=== PATIENT | male | born 1970 | race Caucasian/White ===

== ENCOUNTER 2024-08-27 17:02 | Inpatient (IN) | payer OTHER ==
[~2024-08-27] VITALS: Ht 175.3 cm; Wt 102.0 kg
[2024-08-27 17:42] LABS: PLATELET COUNT (AUTO) 208 K/uL (150-450); RED BLOOD CELL COUNT(AUTO) 4.60 MIL/uL (4.50-5.90); RED CELL DISTRIBUTION WIDTH 12.8 % (11.5-14.5); WHITE BLOOD COUNT (AUTO) 7.7 K/uL (4.5-11.0)
[2024-08-27 17:55] LABS: CALCIUM, TOTAL 8.9 mg/dL (8.8-10.5); CREATININE 1.11 mg/dL (0.60-1.30); GLOMERULAR FILTR. RATE CALC > 60 mL/min (>60); GLUCOSE,RANDOM 95 mg/dL (70-110); SODIUM SERUM 138 mmol/L (136-145); UREA NITROGEN, BLOOD 25 mg/dL (7-18)
[2024-08-27 18:06] LABS: LACTIC ACID 0.8 mmol/L (0.4-2.0)
[2024-08-27] MEDS: CefTRIAXone SODIUM 2 GM in DEXTROSE 5%-WATER 50 ML IV ONE (18:15)
[2024-08-27] MEDS: LIDOCAINE 1% 10 ML VIAL PERC ONE (18:31)
[2024-08-27] MEDS: LIDOCAINE/PRILOCAINE 2.5-2.5% 30 GM CREAM TP ONE (18:34)
[2024-08-27] MEDS: VANCOMYCIN 1.25 GM/WATER(PEG) 250 ML IV ONE (18:34)
[2024-08-27] MEDS ORDERED: ONDANSETRON HCL 4 MG/2 ML VIAL IVP PRN (19:00)
[2024-08-27] MEDS: DOCUSATE SODIUM 100 MG CAPSULE PO SCH (20:07)
[2024-08-27 22:32] VITALS: BP 132/82; PULSE 75; RESP 18; TEMP 98.1; O2SAT 100
[2024-08-27] MEDS: MELATONIN 3 MG TABLET PO ONE (23:33)
[2024-08-27] MEDS: ACETAMINOPHEN 325 MG TABLET PO PRN (23:33)
[2024-08-28 04:50] VITALS: BP 114/71; PULSE 74; RESP 18; TEMP 98.2; O2SAT 100
[2024-08-28 07:08] LABS: PLATELET COUNT (AUTO) 199 K/uL (150-450); RED BLOOD CELL COUNT(AUTO) 4.54 MIL/uL (4.50-5.90); RED CELL DISTRIBUTION WIDTH 13.0 % (11.5-14.5); WHITE BLOOD COUNT (AUTO) 7.6 K/uL (4.5-11.0)
[2024-08-28 07:11] LABS: CALCIUM, TOTAL 8.7 mg/dL (8.8-10.5); CREATININE 0.85 mg/dL (0.60-1.30); GLOMERULAR FILTR. RATE CALC > 60 mL/min (>60); GLUCOSE,RANDOM 95 mg/dL (70-110); SODIUM SERUM 137 mmol/L (136-145); UREA NITROGEN, BLOOD 18 mg/dL (7-18)
[2024-08-28] MEDS: MORPHINE SULFATE 2 MG/ML SYRINGE IVP PRN (07:42)
[2024-08-28 08:15] VITALS: BP 115/75; PULSE 73; RESP 18; TEMP 97.8; O2SAT 98
[2024-08-28] MEDS ORDERED: LIDOCAINE 2%/EPI 1:200,000/PF 10 ML VIAL IM ONE (15:45)
[2024-08-28] MEDS: LIDOCAINE/PF 2% 5 ML VIAL IM ONE (16:51)
[2024-08-28 20:21] VITALS: BP 124/67; PULSE 78; RESP 18; TEMP 99.5; O2SAT 96
[2024-08-28] MEDS: MELATONIN 3 MG TABLET PO PRN (20:59)
[2024-08-29] MEDS: HEPARIN SODIUM,PORCINE 5,000 UNITS/ML VIAL SQ SCH
[2024-08-29 04:31] VITALS: BP 112/64; PULSE 70; RESP 18; TEMP 98.8; O2SAT 99
[2024-08-29 09:40] VITALS: BP 116/66; PULSE 73; RESP 19; TEMP 98.9; O2SAT 100
[2024-08-29] MEDS: VANCOMYCIN 1GM/WATER(PEG/NADA) 200 ML IV SCH (16:10)
[2024-08-29] MEDS ORDERED: SODIUM CHLORIDE 0.9% 1,000 ML ONE (16:15)
[2024-08-29 19:30] VITALS: BP 126/69; PULSE 64; RESP 18; TEMP 98.2; O2SAT 99
[2024-08-30 04:42] VITALS: BP 128/78; PULSE 65; RESP 18; TEMP 98.1; O2SAT 98
[2024-08-30 07:38] LABS: CALCIUM, TOTAL 8.9 mg/dL (8.8-10.5); CREATININE 0.80 mg/dL (0.60-1.30); GLOMERULAR FILTR. RATE CALC > 60 mL/min (>60); GLUCOSE,RANDOM 104 mg/dL (70-110); SODIUM SERUM 141 mmol/L (136-145); UREA NITROGEN, BLOOD 17 mg/dL (7-18)
[2024-08-30 09:01] VITALS: BP 115/83; PULSE 60; RESP 18; TEMP 97.7; O2SAT 99
[2024-08-30 19:46] VITALS: BP 135/74; PULSE 75; RESP 18; TEMP 98.6; O2SAT 100
[2024-08-31 04:51] VITALS: BP 120/66; PULSE 59; RESP 18; TEMP 97.9; O2SAT 100
[2024-08-31 06:48] LABS: CALCIUM, TOTAL 9.0 mg/dL (8.8-10.5); CREATININE 0.86 mg/dL (0.60-1.30); GLOMERULAR FILTR. RATE CALC > 60 mL/min (>60); GLUCOSE,RANDOM 103 mg/dL (70-110); SODIUM SERUM 140 mmol/L (136-145); UREA NITROGEN, BLOOD 19 mg/dL (7-18)
[2024-08-31 08:23] VITALS: BP 124/76; PULSE 60; RESP 17; TEMP 97.8; O2SAT 100
[2024-08-31 08:57] VITALS: BP 127/84; PULSE 64; RESP 20; TEMP 97.7; O2SAT 98
[2024-08-31 19:47] VITALS: BP 142/97; PULSE 72; RESP 16; TEMP 98.1; O2SAT 99
[2024-09-01 03:03] VITALS: BP 121/86; PULSE 63; RESP 18; TEMP 98.4; O2SAT 100
[2024-09-01 07:06] LABS: CALCIUM, TOTAL 9.2 mg/dL (8.8-10.5); CREATININE 0.94 mg/dL (0.60-1.30); GLOMERULAR FILTR. RATE CALC > 60 mL/min (>60); GLUCOSE,RANDOM 111 mg/dL (70-110); SODIUM SERUM 137 mmol/L (136-145); UREA NITROGEN, BLOOD 21 mg/dL (7-18)
[2024-09-01 08:00] VITALS: BP 123/81; PULSE 61; RESP 18; TEMP 97.5; O2SAT 100
[2024-09-01 15:54] VITALS: BP 122/81; PULSE 71; RESP 18; TEMP 98.2; O2SAT 100
== END 2024-09-01 16:45 | DRG 501 ==
LOC: EMS 17:02 → EDH 18:51 → 6S 21:59
PROVIDERS: ADMIT Internal Medicine; ATTEND Internal Medicine
PROC: 0R9L3ZZ Drainage of Right Elbow Joint, Percutaneous Approach (ICD-10-PCS; principal; 2024-08-27)
PROC: 0M930ZZ Drainage of Right Elbow Bursa and Ligament, Open Approach (ICD-10-PCS; 2024-08-28)
DX: M71.121 Other infective bursitis, right elbow (principal); C85.9A Non-Hodgkin lymphoma, unspecified, in remission; S42.447 Incarcerated fracture (avulsion) of medial epicondyle of right humerus; L03.113 Cellulitis of right upper limb; R79.89 Other specified abnormal findings of blood chemistry; S50.311A Abrasion of right elbow, initial encounter; B95.61 Methicillin susceptible Staphylococcus aureus infection as the cause of diseases classified elsewhere; W18.39XA Other fall on same level, initial encounter; Y92.148 Other place in prison as the place of occurrence of the external cause; Y93.89 Activity, other specified; Y99.8 Other external cause status; Z91.81 History of falling
CPT/HCPCS: 10160; 80048; 80202; 83605; 83735; 85025; 85651; 86140; 87040; 87070; 87186; 87205; 96365; 96368; 99285; J0696; J1644; J2270; J3490; J7030; J7060

== ENCOUNTER 2024-09-03 16:22 | Inpatient (IN) | payer OTHER ==
[~2024-09-03] VITALS: Ht 175.3 cm; Wt 95.5 kg
[2024-09-03 17:22] LABS: PLATELET COUNT (AUTO) 286 K/uL (150-450); RED BLOOD CELL COUNT(AUTO) 4.57 MIL/uL (4.50-5.90); RED CELL DISTRIBUTION WIDTH 12.7 % (11.5-14.5); WHITE BLOOD COUNT (AUTO) 6.4 K/uL (4.5-11.0)
[2024-09-03 17:28] LABS: CALCIUM, TOTAL 9.1 mg/dL (8.8-10.5); CREATININE 0.98 mg/dL (0.60-1.30); GLOMERULAR FILTR. RATE CALC > 60 mL/min (>60); GLUCOSE,RANDOM 114 mg/dL (70-110); SODIUM SERUM 140 mmol/L (136-145); UREA NITROGEN, BLOOD 27 mg/dL (7-18)
[2024-09-03 17:32] LABS: ASPARTATE AMINOTRANSFERASE 44 U/L (15-37); C-REACTIVE PROTEIN QUANT 1.44 mg/dL (0.00-0.30); TOTAL PROTEIN, SERUM 8.0 g/dL (6.4-8.2)
[2024-09-03 17:49] LABS: ERYTHROCYTE SEDIMENTATION RATE 34 MM/HR (0-20)
[2024-09-03] MEDS ORDERED: BISACODYL 10 MG RECTAL RECTAL SUPPOSITORY PR PRN (18:30)
[2024-09-03] MEDS ORDERED: ZOLPIDEM TARTRATE 5 MG TABLET PO PRN (18:30)
[2024-09-03] MEDS ORDERED: ALBUTEROL SULFATE 2.5 MG/0.5 ML NEB SOLUTION NEB PRN (18:30)
[2024-09-03] MEDS ORDERED: MAGNESIUM HYDROXIDE SUSPENSION 30 ML UDCUP PO PRN (18:30)
[2024-09-03] MEDS ORDERED: ONDANSETRON HCL 4 MG/2 ML VIAL IVP PRN (18:30)
[2024-09-03] MEDS ORDERED: IPRATROPIUM BROMIDE 0.5 MG/2.5 ML NEB SOLUTION NEB PRN (18:30)
[2024-09-03] MEDS ORDERED: HYDROCODONE/ACETAMINOPHEN 5-325 MG TABLET PO PRN (18:30)
[2024-09-03] MEDS ORDERED: ACETAMINOPHEN 325 MG TABLET PO PRN (18:30)
[2024-09-03] MEDS ORDERED: MELATONIN 5 MG TABLET PO PRN (18:45)
[2024-09-03 22:16] VITALS: BP_SYST 116; BP_SYST 128; BP_DIAS 66; BP_DIAS 77; PULSE 64; PULSE 85; RESP 18; RESP 19; TEMP 97.7; TEMP 98.6; O2SAT 94; O2SAT 99
[2024-09-03] MEDS: MORPHINE SULFATE 2 MG/ML SYRINGE IVP PRN (22:19)
[2024-09-03] MEDS: HEPARIN SODIUM,PORCINE 5,000 UNITS/ML VIAL SQ SCH (22:23)
[2024-09-04 04:06] VITALS: BP 107/67; PULSE 59; RESP 18; TEMP 97.7; O2SAT 99
[2024-09-04 08:02] VITALS: BP 112/78; PULSE 63; RESP 18; TEMP 97.5; O2SAT 100
[2024-09-04] MEDS: PANTOPRAZOLE SODIUM 40 MG DR TABLET PO SCH (08:13)
== END 2024-09-04 13:25 | DRG 558 ==
LOC: EMS 16:22 → EDH 18:29 → 6S 21:55
PROVIDERS: ADMIT Hospitalist; ATTEND Hospitalist
DX: M71.121 Other infective bursitis, right elbow (principal); S42.431A Displaced fracture (avulsion) of lateral epicondyle of right humerus, initial encounter for closed fracture; C85.9A Non-Hodgkin lymphoma, unspecified, in remission; B96.89 Other specified bacterial agents as the cause of diseases classified elsewhere; B95.7 Other staphylococcus as the cause of diseases classified elsewhere; Z91.199 Patient's noncompliance with other medical treatment and regimen due to unspecified reason
CPT/HCPCS: 80053; 85025; 85651; 86140; 87040; 87081; 99285; J1644; J2270